=== PATIENT | female | born 1935 | race Caucasian/White ===

== ENCOUNTER → 2017-10-14 | Outpatient (CLI) | payer MEDICARE, OTHER, MEDICAID ==
[~2017-10-14] MED LIST: ASPI-989; CLOP75 PO; GADOBUTROL 1 MMOL/ML 10 ML VIAL IVP ONE; HYDR-3965 PO; LEVO75TA10 PO; LORA10TA7 PO; MULT1TAB70 PO; VALS40TA4 PO; VENL75TA63 PO
== END | disposition home or self-care (01) ==
LOC: RADMN 09:01
PROVIDERS: ATTEND Physical Medicine & Rehabilitation
DX: I67.9 Cerebrovascular disease, unspecified (principal); I63.8 Other cerebral infarction
CPT/HCPCS: 70553; A9585

== ENCOUNTER → 2019-12-23 | Outpatient (CLI) | payer MEDICARE, OTHER, MEDICAID ==
[~2019-12-23] MED LIST changes: +ASPI-629; -ASPI-989; -CLOP75 PO; +CLOP75TA3 PO; -GADOBUTROL 1 MMOL/ML 10 ML VIAL IVP ONE; +VENL-61 PO; -VENL75TA63 PO
== END | disposition home or self-care (01) ==
LOC: RADPV 08:10
PROVIDERS: ATTEND Psychiatry & Neurology Neurology
DX: R56.9 Unspecified convulsions (principal); M32.9 Systemic lupus erythematosus, unspecified; G31.83 Neurocognitive disorder with Lewy bodies; F02.80 Dementia in other diseases classified elsewhere, unspecified severity, without behavioral disturbance, psychotic disturbance, mood disturbance, and anxiety
CPT/HCPCS: 95816

== ENCOUNTER → 2021-09-15 | Outpatient (CLI) | payer MEDICARE, OTHER ==
[~2021-09-15] MED LIST changes: -ASPI-629; +ASPI-989; -CLOP75TA3 PO; +CLOP75TA60 PO; +VENL-191 PO; -VENL-61 PO
== END | disposition home or self-care (01) ==
LOC: RADPV 10:40
PROVIDERS: ATTEND Physical Medicine & Rehabilitation
DX: R94.01 Abnormal electroencephalogram [EEG] (principal); G40.909 Epilepsy, unspecified, not intractable, without status epilepticus
CPT/HCPCS: 95816

== ENCOUNTER 2021-10-31 07:28 | Inpatient (IN) | payer MEDICARE, OTHER, MEDICAID ==
[~2021-10-31] VITALS: Ht 172.7 cm; Wt 87.2 kg
[2021-10-31] MEDS ORDERED: 0.9% SODIUM CHLORIDE 10 ML SYRINGE IVP PRN (08:30)
[2021-10-31] MEDS: ALBUTEROL SULFATE HFA 90 MCG/PUFF 8 GM INHALER IH ONE ×2 (08:30→08:38)
[2021-10-31] MEDS ORDERED: ACETAMINOPHEN 1000 MG/ISO-OSM 100 ML IV ONE (09:15)
[2021-10-31 09:27] LABS: COVID AG,FIA SOURCE NASAL SWAB
[2021-10-31] MEDS ORDERED: SODIUM CHLORIDE 0.9% 2,750 ML IV ONE (09:30)
[2021-10-31 09:49] LABS: INFLUENZA TYPE A NEGATIVE FOR TYPE A (NEGATIVE); INFLUENZA TYPE B NEGATIVE FOR TYPE B (NEGATIVE)
[2021-10-31 10:03] LABS: ABG BASE EXCESS 4.7 mmol/L (-2.0-3.0); ABG HCO3 27.8 mmol/L (22.0-26.0); ABG METHEMOGLOBIN 0.2 % (0.0-1.5); ABG OXYGEN SATURATION 96.8 % (95.0-98.0); ABG OXYHEMOGLOBIN 95.6 % (94.0-100.0); ABG PCO2 54 mmHg (35-45); ABG PH 7.365 (7.35-7.450); ABG TOTAL HEMOGLOBIN 12.5 G/dL (12.0-18.0); PO2, ARTERIAL BG 121.7 mmHg (71.0-79.0); SOURCE, BLOOD GAS ARTERIAL; TEMPERATURE, FAHRENHEIT, BG 101.8 FAHREN (96.0-98.6)
[2021-10-31 10:05] LABS: O2 DEVICE,BLOOD GAS CANNULA (ROOM AIR); SITE, BLOOD GAS LFT RADIAL
[2021-10-31 10:47] LABS: BASOPHILS % (AUTO) 0.3 % (0.0-2.0); EOSINOPHILS % (AUTO) 0 % (1.0-6.0); HEMATOCRIT 38.1 % (36-46); HEMOGLOBIN 12.2 g/dL (12.0-16.0); LYMPHOCYTES # (AUTO) 1.9 K/uL (1.0-4.8); MEAN CORPUSCULAR VOLUME 97 fL (80-100); MONOCYTES # (AUTO) 1.1 K/uL (0.1-1.0); MONOCYTES % (AUTO) 5.9 % (2.0-9.0); NEUTROPHILS # (AUTO) 15.6 K/uL (1.8-7.7); NEUTROPHILS % (AUTO) 83.8 % (40.0-70.0); PLATELET COUNT (AUTO) 166 K/uL (150-450); RED BLOOD CELL COUNT(AUTO) 3.93 MIL/uL (4.00-5.20); RED CELL DISTRIBUTION WIDTH 14.2 % (11.5-14.5)
[2021-10-31 11:01] LABS: D-DIMER 1.01 mg/L FEU (0.00-0.50); INR 1.1 (0.9-1.1)
[2021-10-31 11:06] LABS: B-TYPE NATRIURETIC PEPTIDE 489 pg/mL (0-100)
[2021-10-31 11:13] LABS: ANION GAP 6 mmol/L (8-16); CALCIUM, TOTAL 10.4 mg/dL (8.8-10.5); CARBON DIOXIDE 32 mmol/L (22-29); CHLORIDE 104 mmol/L (98-107); CREATININE 1.22 mg/dL (0.60-1.30); GLOMERULAR FILTR. RATE CALC 42 mL/min (>60); GLUCOSE,RANDOM 92 mg/dL (70-110); POTASSIUM 4.6 mmol/L (3.5-5.1); SODIUM SERUM 142 mmol/L (136-145); UREA NITROGEN, BLOOD 30 mg/dL (7-18)
[2021-10-31 11:16] LABS: LACTIC ACID 2.2 mmol/L (0.4-2.0)
[2021-10-31 11:19] LABS: ALANINE AMINOTRANSFERASE 22 U/L (12-78); ALKALINE PHOSPHATASE 133 U/L (46-116); ASPARTATE AMINOTRANSFERASE 31 U/L (15-37); BILIRUBIN,TOTAL 0.6 mg/dL (0.1-1.0); CREATINE KINASE, TOTAL ONLY 28 U/L (26-192); FREE T4 (FREE THYROXINE) 1.19 ng/dL (0.76-1.46); TOTAL PROTEIN, SERUM 7.2 g/dL (6.4-8.2)
[2021-10-31] MEDS ORDERED: LEVOFLOXACIN 500 MG/D5% WATER 100 ML IV ONE (11:45)
[2021-10-31 12:19] LABS: GLUCOSE, URINE (UA) NEGATIVE (NEGATIVE); KETONES,URINE 15 mg/dL (NEGATIVE); LEUKOCYTE ESTERASE ,URINE LARGE (NEGATIVE); NITRATE,URINE NEGATIVE (NEGATIVE); OCCULT BLOOD,URINE LARGE (NEGATIVE); PH,URINE 5.5 (5.0-8.0); PROTEIN,URINE SEE CONFIRM (NEGATIVE)
[2021-10-31 12:20] LABS: APPEARANCE,URINE CLOUDY (CLEAR); BILIRUBIN,URINE PRELIM. POSITIVE (NEGATIVE)
[2021-10-31 12:34] LABS: BACTERIA,URINE Many /HPF (None Seen); RBC,URINE 26-50 /HPF (0-2); SULFOSALICYLIC ACID,URINE 4+ (Negative); WBC,URINE >100 /HPF (0-5); YEAST,URINE Many /HPF (None Seen)
[2021-10-31] MEDS ORDERED: ASCO500 PO (14:08)
[2021-10-31] MEDS ORDERED: LOSA-381 PO (14:13)
[2021-10-31] MEDS ORDERED: LIDO700A30 TP (14:13)
[2021-10-31] MEDS ORDERED: LEVO50TA11 PO (14:13)
[2021-10-31] MEDS ORDERED: APIX2.5T PO (14:13)
[2021-10-31] MEDS ORDERED: LACO150T2 PO (14:13)
[2021-10-31] MEDS ORDERED: CARV3.1231 PO (14:13)
[2021-10-31] MEDS ORDERED: LEVE500T20 PO (14:13)
[2021-10-31] MEDS ORDERED: SIMV-43 PO (14:13)
[2021-10-31] MEDS ORDERED: BISACODYL 10 MG RECTAL RECTAL SUPPOSITORY PR PRN (14:30)
[2021-10-31] MEDS ORDERED: ONDANSETRON HCL 4 MG/2 ML VIAL IVP PRN (14:30)
[2021-10-31] MEDS ORDERED: *CLINICAL-MEROPENEM DOSING CLINICAL ONE (14:30)
[2021-10-31] MEDS ORDERED: ACETAMINOPHEN 325 MG TABLET PO PRN (14:30)
[2021-10-31] MEDS: SODIUM CHLORIDE 0.9% 1,000 ML IV SCH (14:30)
[2021-10-31] MEDS: LevETIRAcetam 500 MG in DEXTROSE 5%-WATER 100 ML IV SCH (15:21)
[2021-10-31] MEDS: HEPARIN SODIUM,PORCINE 5,000 UNITS/ML VIAL SQ SCH (15:21)
[2021-10-31] MEDS ORDERED: VANCOMYCIN HCL 1.25 GM in DEXTROSE 5%-WATER 250 ML IV ONE (16:00)
[2021-10-31] MEDS: MEROPENEM 1 GM in SODIUM CHLORIDE 0.9% 100 ML IV SCH (17:23)
[2021-10-31 21:19] VITALS: BP 94/67
[2021-10-31 23:06] VITALS: BP 113/50
[2021-11-01] MEDS: HEPARIN SODIUM,PORCINE 5,000 UNITS/ML VIAL SQ SCH ×2 (00:40→08:30)
[2021-11-01] MEDS: SODIUM CHLORIDE 0.9% 1,000 ML IV SCH ×2 (00:40→12:07)
[2021-11-01] MEDS: LevETIRAcetam 500 MG in DEXTROSE 5%-WATER 100 ML IV SCH ×2 (02:31→15:21)
[2021-11-01 05:12] VITALS: BP 101/49
[2021-11-01] MEDS: MEROPENEM 1 GM in SODIUM CHLORIDE 0.9% 100 ML IV SCH ×2 (05:34→18:00)
[2021-11-01 07:17] LABS: CALCIUM, TOTAL 9.6 mg/dL (8.8-10.5); CREATININE 1.2 mg/dL (0.60-1.30); POTASSIUM 4.7 mmol/L (3.5-5.1)
[2021-11-01 08:25] VITALS: BP 122/79
[2021-11-01] MEDS: PANTOPRAZOLE SODIUM 40 MG/VIAL IVP SCH (08:30)
[2021-11-01] MEDS: VANCOMYCIN HCL 1 GM/D5% WATER 200 ML IV SCH (08:30)
[2021-11-01 11:43] VITALS: BP 117/62
[2021-11-01 15:53] VITALS: BP 108/70
[2021-11-01] MEDS: CARVEDILOL 6.25 MG TABLET PO SCH ×2 (16:08→20:58)
[2021-11-01] MEDS: APIXABAN 5 MG TABLET PO SCH ×2 (16:08→20:57)
[2021-11-01 19:30] VITALS: BP 126/85
[2021-11-01 23:54] VITALS: BP 129/83
[2021-11-02] MEDS: LevETIRAcetam 500 MG in DEXTROSE 5%-WATER 100 ML IV SCH ×2 (04:07→15:46)
[2021-11-02 04:51] VITALS: BP 139/88
[2021-11-02] MEDS: MEROPENEM 1 GM in SODIUM CHLORIDE 0.9% 100 ML IV SCH ×2 (06:36→16:33)
[2021-11-02 07:50] VITALS: BP 142/72
[2021-11-02 08:30] LABS: BASOPHILS % (AUTO) 0.5 % (0.0-2.0); EOSINOPHILS % (AUTO) 0.3 % (1.0-6.0); HEMATOCRIT 40.7 % (36-46); HEMOGLOBIN 13.6 g/dL (12.0-16.0); LYMPHOCYTES # (AUTO) 2.2 K/uL (1.0-4.8); LYMPHOCYTES % (AUTO) 22.3 % (22.0-44.0); MEAN CORPUSCULAR HGB CONC 33.3 G/dL (31.0-37.0); MEAN CORPUSCULAR VOLUME 96 fL (80-100); MONOCYTES # (AUTO) 0.6 K/uL (0.1-1.0); MONOCYTES % (AUTO) 6.2 % (2.0-9.0); NEUTROPHILS # (AUTO) 7.1 K/uL (1.8-7.7); NEUTROPHILS % (AUTO) 70.7 % (40.0-70.0); PLATELET COUNT (AUTO) 154 K/uL (150-450); RED BLOOD CELL COUNT(AUTO) 4.25 MIL/uL (4.00-5.20); RED CELL DISTRIBUTION WIDTH 14.3 % (11.5-14.5)
[2021-11-02 08:39] LABS: CALCIUM, TOTAL 9.8 mg/dL (8.8-10.5); CREATININE 1.03 mg/dL (0.60-1.30)
[2021-11-02] MEDS: CARVEDILOL 6.25 MG TABLET PO SCH ×2 (09:01→21:16)
[2021-11-02] MEDS: PANTOPRAZOLE SODIUM 40 MG/VIAL IVP SCH (09:01)
[2021-11-02] MEDS: APIXABAN 5 MG TABLET PO SCH ×2 (09:02→21:16)
[2021-11-02] MEDS: VANCOMYCIN HCL 1 GM/D5% WATER 200 ML IV SCH (09:03)
[2021-11-02 11:35] VITALS: BP 134/89
[2021-11-02 16:17] VITALS: BP 136/84
[2021-11-02 20:37] VITALS: BP 133/80
[2021-11-03] MEDS: LevETIRAcetam 500 MG in DEXTROSE 5%-WATER 100 ML IV SCH (02:52)
[2021-11-03 03:40] VITALS: BP 121/77
[2021-11-03] MEDS: MEROPENEM 1 GM in SODIUM CHLORIDE 0.9% 100 ML IV SCH ×2 (05:31→16:43)
[2021-11-03 07:48] VITALS: BP 128/85
[2021-11-03] MEDS: PANTOPRAZOLE SODIUM 40 MG/VIAL IVP SCH (09:50)
[2021-11-03] MEDS: CARVEDILOL 6.25 MG TABLET PO SCH ×2 (09:50→21:36)
[2021-11-03] MEDS: APIXABAN 5 MG TABLET PO SCH ×2 (09:50→21:36)
[2021-11-03] MEDS: VANCOMYCIN HCL 1 GM/D5% WATER 200 ML IV SCH (13:54)
[2021-11-03] MEDS: LevETIRAcetam 100 MG/ML 5 ML SOLUTION UDCUP PO SCH ×2 (16:37→21:36)
[2021-11-03 20:12] VITALS: BP 133/90
[2021-11-03 23:18] VITALS: BP 131/79
[2021-11-04 05:31] VITALS: BP 145/91
[2021-11-04] MEDS: MEROPENEM 1 GM in SODIUM CHLORIDE 0.9% 100 ML IV SCH ×2 (05:44→19:37)
[2021-11-04 08:01] VITALS: BP 142/95
[2021-11-04] MEDS: CARVEDILOL 6.25 MG TABLET PO SCH ×2 (09:50→20:47)
[2021-11-04] MEDS: APIXABAN 5 MG TABLET PO SCH ×2 (09:50→20:47)
[2021-11-04] MEDS: VANCOMYCIN HCL 1 GM/D5% WATER 200 ML IV SCH (10:00)
[2021-11-04] MEDS: PANTOPRAZOLE SODIUM 40 MG/VIAL IVP SCH (10:19)
[2021-11-04] MEDS: LevETIRAcetam 100 MG/ML 5 ML SOLUTION UDCUP PO SCH ×2 (10:26→20:46)
[2021-11-04 11:33] VITALS: BP 105/73
[2021-11-04 11:59] LABS: CALCIUM, TOTAL 9.8 mg/dL (8.8-10.5); CREATININE 0.99 mg/dL (0.60-1.30); POTASSIUM 4.7 mmol/L (3.5-5.1); VANCOMYCIN,RANDOM 16.3 mcg/mL (25.0-50.0)
[2021-11-04 16:08] VITALS: BP 133/82
[2021-11-04] MEDS ORDERED: VANCOMYCIN HCL 750 MG in DEXTROSE 5%-WATER 250 ML IV SCH (20:00)
[2021-11-04 20:50] VITALS: BP 137/71
[2021-11-04 23:22] VITALS: BP 127/82
[2021-11-05 04:10] VITALS: BP 138/85
[2021-11-05] MEDS: MEROPENEM 1 GM in SODIUM CHLORIDE 0.9% 100 ML IV SCH (06:00)
[2021-11-05 07:11] VITALS: BP 144/80
[2021-11-05] MEDS: PANTOPRAZOLE SODIUM 40 MG/VIAL IVP SCH (09:00)
[2021-11-05] MEDS ORDERED: CIPROFLOXACIN HCL 500 MG TABLET PO SCH (09:00)
[2021-11-05] MEDS: LevETIRAcetam 100 MG/ML 5 ML SOLUTION UDCUP PO SCH (10:07)
[2021-11-05] MEDS: CARVEDILOL 6.25 MG TABLET PO SCH (10:09)
[2021-11-05] MEDS: APIXABAN 5 MG TABLET PO SCH (10:09)
[2021-11-05 11:00] LABS: BASOPHILS % (AUTO) 0.8 % (0.0-2.0); EOSINOPHILS % (AUTO) 1.5 % (1.0-6.0); HEMATOCRIT 44.3 % (36-46); HEMOGLOBIN 14.7 g/dL (12.0-16.0); LYMPHOCYTES # (AUTO) 1.5 K/uL (1.0-4.8); MEAN CORPUSCULAR HEMOGLOBIN 31.8 pg (26.0-34.0); MEAN CORPUSCULAR HGB CONC 33.2 G/dL (31.0-37.0); MEAN CORPUSCULAR VOLUME 96 fL (80-100); MONOCYTES # (AUTO) 1.1 K/uL (0.1-1.0); MONOCYTES % (AUTO) 14.5 % (2.0-9.0); NEUTROPHILS % (AUTO) 64.2 % (40.0-70.0); PLATELET COUNT (AUTO) 181 K/uL (150-450); RED BLOOD CELL COUNT(AUTO) 4.62 MIL/uL (4.00-5.20); RED CELL DISTRIBUTION WIDTH 14.5 % (11.5-14.5)
[2021-11-05 11:15] VITALS: BP 137/83
[2021-11-05 11:35] LABS: CALCIUM, TOTAL 10.2 mg/dL (8.8-10.5); CREATININE 0.96 mg/dL (0.60-1.30); POTASSIUM 4.6 mmol/L (3.5-5.1)
[2021-11-05 11:45] LABS: COVID AG,FIA SOURCE NASOPHARYNGEAL
[2021-11-05] MEDS ORDERED: APIX5TAB PO (12:58)
[2021-11-05] MEDS ORDERED: CARV6.2534 PO (12:59)
[2021-11-05] MEDS ORDERED: CIPR-278 PO (13:18)
[2021-11-05] MEDS ORDERED: PANT-31 PO (13:21)
[2021-11-05] MEDS ORDERED: ACET-784 PO (13:22)
[2021-11-05] MEDS ORDERED: BISA10SU61 PR (13:23)
== END 2021-11-05 13:55 | DRG 871 ==
LOC: EMS 07:35 → 5S 19:00
PROVIDERS: ADMIT Internal Medicine; ATTEND Internal Medicine
DX: A41.9 Sepsis, unspecified organism (principal); G92.9 Unspecified toxic encephalopathy; N39.0 Urinary tract infection, site not specified; E03.9 Hypothyroidism, unspecified; F02.80 Dementia in other diseases classified elsewhere, unspecified severity, without behavioral disturbance, psychotic disturbance, mood disturbance, and anxiety; G20 Parkinson's disease; Z66 Do not resuscitate; I48.91 Unspecified atrial fibrillation; Z20.822 Contact with and (suspected) exposure to COVID-19; G62.9 Polyneuropathy, unspecified; R65.20 Severe sepsis without septic shock; G40.909 Epilepsy, unspecified, not intractable, without status epilepticus; I50.9 Heart failure, unspecified; I11.0 Hypertensive heart disease with heart failure; I89.0 Lymphedema, not elsewhere classified; R09.02 Hypoxemia; Z85.3 Personal history of malignant neoplasm of breast; Z88.0 Allergy status to penicillin; Z88.2 Allergy status to sulfonamides; Z88.8 Allergy status to other drugs, medicaments and biological substances
CPT/HCPCS: 36600; 51702; 71045; 80048; 80053; 80202; 81001; 81002; 82550; 82805; 83605; 83880; 84145; 84439; 84443; 84484; 85025; 85379; 85610; 85730; 87040; 87081; 87086; 87804; 92610; 93005; 93306; 93970; 97163; 99285; C9113; J0131; J0712; J1644; J1956; J2185; J3370; J3535; J7030; J7050; J7060; 36415-L1; 36415-TC